=== PATIENT | male | born 1960 | race Caucasian/White ===

== ENCOUNTER 2020-11-26 09:36 | Emergency (ER) | payer MEDICAID, SELFPAY ==
[2020-11-26] VITALS (19 sets, daily range): BP systolic 77–145; BP diastolic 29–63; PULSE 97–160; RESP 16–26; TEMP 34.2–35.1; O2SAT 10–100; BMI 23.3
--- NOTE | ~2020-11-26 | XR_ITS ---
EXAMINATION: XR CHEST CLINICAL INFORMATION: ET tube placement COMPARISON: Previous chest x-ray from earlier the same day TECHNIQUE: Frontal view of the chest was obtained. FINDINGS: There is a new endotracheal tube with tip 0.5 cm above the jc. There is a new nasogastric tube with tip projecting over the stomach. The cardiac and mediastinal contours are normal. There may be small right upper lobe nodules largest measuring 5 mm that appear unchanged. The lungs are otherwise clear. There is no pleural effusion or pneumothorax. Bony structures are unremarkable. XR/XR chest 1V IMPRESSION: Satisfactory position of endotracheal tube and nasogastric tube.
--- NOTE | ~2020-11-26 | CT_ITS ---
EXAMINATION: CT HEAD WITHOUT CONTRAST CLINICAL INFORMATION: Acute mental status change COMPARISON: None TECHNIQUE: Contiguous axial imaging was performed from the skull base to vertex without intravenous administration of contrast. This CT examination was performed using dose optimization techniques as appropriate, variously including the following: *Automated exposure control *Adjustment of mA and/or kV according to patient size (this includes techniques or standardized protocols for targeted exams where dose is matched to indication/reason for exam; i.e. extremities or head) *Use of iterative reconstruction technique DLP: 7-0 mGy-cm FINDINGS: Exam is limited due to motion artifact. There is no evidence of acute intracranial hemorrhage or territorial infarction. No abnormal mass effect or midline shift is seen. Rushing to white matter differentiation is well preserved. No extra-axial fluid collections are identified. The ventricles are normal in size. There is no abnormal attenuation within the brain parenchyma. The osseous structures and soft tissues are normal. The mastoid air cells and visualized portions of the paranasal sinuses are well aerated. CT/CT head/brain wo con IMPRESSION: Limited exam due to motion artifact. No acute findings.
--- NOTE | ~2020-11-26 | CT_ITS ---
EXAMINATION: CT ABDOMEN AND PELVIS WITHOUT CONTRAST CLINICAL INFORMATION: Abdominal pain COMPARISON: None TECHNIQUE: Multidetector volumetric imaging was performed from the superior aspect of the liver through the pubic symphysis. Sagittal and coronal reformatted images were obtained on the technologist's workstation. Exam is limited due to motion artifact. This CT examination was performed using dose optimization techniques as appropriate, variously including the following: *Automated exposure control *Adjustment of mA and/or kV according to patient size (this includes techniques or standardized protocols for targeted exams where dose is matched to indication/reason for exam; i.e. extremities or head) *Use of iterative reconstruction technique DLP: 860 mGy-cm FINDINGS: LUNG BASES: The visualized lung bases are unremarkable. LIVER, GALLBLADDER, AND BILIARY TREE: The liver is cirrhotic appearing. No focal liver lesion is seen. The gallbladder is upper normal in size. There is a gallstone in the gallbladder. There is no biliary duct dilatation. PANCREAS: Unremarkable. SPLEEN: Unremarkable. ADRENAL GLANDS: Unremarkable. KIDNEYS AND URETERS: The kidneys are normal in size, shape, and attenuation. No hydronephrosis, hydroureter, or calculi seen. No perinephric stranding. BLADDER: There is a Dukes catheter in the bladder. GASTROINTESTINAL TRACT: The bowel is fluid-filled suggestive of an ileus. There is question of mild bowel wall thickening of the transverse colon. There is also question of a right-sided wall thickening of the distal sigmoid colon or rectum. There are prominent gastric folds questionable for gastritis. There is question of mild wall thickening versus underdistention of the duodenum. The appendix is not seen. ABDOMINAL WALL: No significant hernia is appreciated. LYMPH NODES: Normal. VASCULAR: There is a right axillary to femoral bypass graft. There is a femoral to femoral bypass graft. There are postsurgical changes seen in both groins. There is evidence of severe atherosclerotic disease. No aneurysm is seen. There are upper abdominal varices. PELVIC VISCERA: Unremarkable. OSSEOUS STRUCTURES: There are degenerative changes of the spine and hip joints. CT/CT abdomen pelvis wo con IMPRESSION: Limited exam due to motion artifact. Cirrhotic-appearing liver. Upper normal-size gallbladder and gallstone. Varices. Fluid-filled loops of bowel suggestive of an ileus. There are prominent gastric folds seen in the stomach. There is question of mild wall thickening of the duodenum and transverse colon. There is also question of asymmetric right-sided wall thickening in the rectum lower sigmoid colon. Correlation with rectal exam recommended.
--- NOTE | ~2020-11-26 | XR_ITS ---
EXAMINATION: XR CHEST CLINICAL INFORMATION: SOB. COMPARISON: None TECHNIQUE: Frontal view of the chest was obtained. FINDINGS: The lungs are well-expanded and clear of acute pneumonic process. There are small clusters of nodule in the right upper lobe. The largest nodule measuring 5 mm. Heart size and pulmonary vascularity is normal. No gross bony abnormality seen. XR/XR chest 1V IMPRESSION: No acute cardiac pulmonary process seen. Small clusters of nodules in the right upper lobe with largest measuring 5 mm.
--- NOTE | 2020-11-26 09:46 | ECG_ITS ---
Test Reason : HYPOTENSION Blood Pressure : / mmHG Vent. Rate : 111 BPM Atrial Rate : 000 BPM P-R Int : 000 ms QRS Dur : 172 ms QT Int : 168 ms P-R-T Axes : 000 123 000 degrees QTc Int : 229 ms Wide QRS tachycardia Abnormal ECG No previous ECGs available Referred By: Lillian Hirsch Electronically Signed By:ANA MARTINEZ MD
[2020-11-26] MEDS: Calcium Gluconate/NaCl,Iso-Osm 1 GM/50 ML PLAST..BAG IV (09:53)
[2020-11-26 10:02] LABS: OBS Int Ctl Valid YES; OBS1 POSITIVE (NEGATIVE)
[2020-11-26 10:10] LABS: ABG pH 7.21 (7.35-7.45); ABG pO2 113 mmHg (83-108)
[2020-11-26 10:18] LABS: ABG HCO3 2 mmol/L (22-26); ABG pCO2 8 mmHg (32-45); ABG pH 7.02 (7.35-7.45); ABG pO2 191 mmHg (83-108)
--- NOTE | 2020-11-26 10:32 | ECG_ITS ---
Test Reason : weakness Blood Pressure : / mmHG Vent. Rate : 211 BPM Atrial Rate : 197 BPM P-R Int : 000 ms QRS Dur : 116 ms QT Int : 228 ms P-R-T Axes : 000 138 -33 degrees QTc Int : 427 ms Suspect limb lead reversal, interpretation assumes no reversal Undetermined rhythm Low voltage QRS Lateral infarct (cited on or before 26-NOV-2020) Abnormal ECG When compared with ECG of 26-NOV-2020 09:47, Current undetermined rhythm precludes rhythm comparison, needs review Right bundle branch block is no longer Present Questionable change in initial forces of Anterolateral leads Referred By: Lillian Hirsch Electronically Signed By:
[2020-11-26 10:40] LABS: MANUAL DIFF FLAG NO
[2020-11-26] MEDS: 0.9 % Sodium Chloride 1,000 ML 999 ML IV (10:40)
[2020-11-26 10:43] LABS: Basophils Absolute Auto 0.1 X10*3/uL (0.0-0.2); Basophils Percent Auto 0.4 % (0-2); Eosinophils Absolute Auto 0.1 X10*3/uL (0.0-0.4); Eosinophils Percent Auto 0.5 % (0-4); Imm Gran Abs Auto 0.76 X10*3/uL (0.00-0.03); Imm Gran Pct Auto 4.6 % (0.0-0.4); Lymphocytes Absolute Auto 1.3 X10*3/uL (1.2-4.9); Mean Corpuscular HGB Conc 30.6 g/dl (31.0-36.0); Mean Corpuscular Hemoglobin 31.3 pg (27.0-33.0); Mean Corpuscular Volume 102.3 fL (80-98); Mean Platelet Volume 11.6 fL (9.4-12.4); Monocytes Absolute Auto 1.4 X10*3/uL (0.1-1.2); Monocytes Percent Auto 8.4 % (2-11); Neutrophils Percent Auto 78.1 % (45-73); Platelet Count 296 X10*3/uL (160-400); Red Blood Count 3.52 X10*6/uL (4.60-5.80); Red Cell Distribution Width 16.7 % (11.0-16.0); White Blood Count 16.7 X10*3/uL (4.8-10.8)
[2020-11-26 11:13] LABS: Troponin-I High Sensitivity 18.1 ng/L (<3.5-35.0)
[2020-11-26 11:19] LABS: Albumin Level 2.1 g/dL (3.5-5.0); Bilirubin Direct 1.2 mg/dL (0.0-0.5); Glucose Random 137 mg/dL (60-115); Lipase 117 U/L (8-78); Magnesium 2.4 mg/dL (1.6-2.6); Total Protein 5.4 g/dL (6.5-8.0)
[2020-11-26 11:20] LABS: Appearance Urine CLOUDY; Color Urine DARK YELLOW; Glucose Urine UA NEG (NEG); Leukocyte Esterase Urine 1+ (NEG); Nitrite Urine POS (NEG); PH 5.5 (5.0-8.0); UACC Culture Trigger YES; Urine Blood 3+ (NEG); Urine Ketones NEG (NEG); Urine Protein 1+ MG/DL (NEG-TRACE)
[2020-11-26] MEDS: dexAMETHasone sod phosphate 10 MG/ML VIAL IVPUSH (11:24)
[2020-11-26 11:32] LABS: Amorphous Sediment Urine 2+ /LPF; Bacteria Urine 1+ /LPF; Squamous Epithelial Cell Urine 2+ /LPF; WBC Urine 50-75 /HPF (0-4)
[2020-11-26] MEDS: cefEPime HCl 2 GM in 0.9 % Sodium Chloride 50 ML IV (11:36)
[2020-11-26 11:39] LABS: ABG Refer to POC result
[2020-11-26 11:39] LABS: Alanine Aminotransferase 905 U/L (0-40); Alkaline Phosphatase 102 U/L (39-117); Aspartate Amino Transferase 1632 U/L (5-37); Blood Urea Nitrogen 98 mg/dL (9-16); Calcium 6.1 mg/dL (8.4-10.2); Carbon Dioxide < 5 mmol/L (22-29); Chloride 104 mmol/L (96-108); Creatinine Clr Calc Pharmacy 17.6; Estimated Glomerular Filt Rate 13; Potassium 7.9 mmol/L (3.3-5.1); Sodium 130 mmol/L (135-145)
[2020-11-26 11:40] LABS: Lactic Acid 12.3 mmol/L (0.5-2.0)
[2020-11-26] MEDS: Insulin Regular, Human 100 UNIT/ML 3 ML VIAL 7 UNIT IVPUSH (11:44)
[2020-11-26] MEDS: Sodium Bicarbonate 8.4% 50 MEQ/50 ML VIAL IVPUSH (11:46)
[2020-11-26 11:51] LABS: Thyroid Stimulating Hormone 5.03 uIU/mL (0.32-4.0)
--- NOTE | 2020-11-26 11:59 | ED.URI ---
HPI - URI/Sore Throat General Chief Complaint: Upper Respiratory Symptoms Stated Complaint: ams, hypotensive Time Seen by Provider: 11/26/20 09:45 History of Present Illness HPI Narrative: Patient is a 60-year-old male with a history of diabetes, hepatitis, peripheral vascular disease, presents today in extremis with shortness of breath. Patient unable to give detailed history. Was placed on CPAP by EMS. Patient unable to give detailed history secondary to condition. Related Data Home Medications Medication Instructions Recorded Confirmed alprazolam 1 tab PO TID PRN 11/26/20 11/26/20 aspirin 1 tab PO DAILY 11/26/20 11/26/20 atorvastatin 1 tab PO DAILY 11/26/20 11/26/20 clobetasol [Temovate] 1 appl TOPICAL BID 11/26/20 11/26/20 coal tar [Neutrogena T-Gel] 1 appl TOPICAL DAILY 11/26/20 11/26/20 ferrous sulfate [FeroSul] 1 tab PO BID 11/26/20 11/26/20 finasteride 1 tab PO DAILY 11/26/20 11/26/20 furosemide 1 tab PO DAILY 11/26/20 11/26/20 gabapentin 1 cap PO TID 11/26/20 11/26/20 ibuprofen 600 mg PO Q6H PRN 11/26/20 11/26/20 linaclotide [Linzess] 145 mcg PO DAILY 11/26/20 11/26/20 lisinopril 10 mg PO DAILY 11/26/20 11/26/20 czvzhhcb-scji-JO-calcium-mins 1 tab PO DAILY 11/26/20 11/26/20 [Thera-M] nystatin [Nystop] 1 appl TOPICAL DAILY 11/26/20 11/26/20 omeprazole 1 cap PO DAILY 11/26/20 11/26/20 oxycodone 1 tab PO Q4H PRN 11/26/20 11/26/20 triamcinolone acetonide [Kenalog] 1 appl TOPICAL BID PRN 11/26/20 11/26/20 zinc sulfate 220 mg PO Q12H 11/26/20 11/26/20 Allergies Allergy/AdvReac Type Severity Reaction Status Date / Time Sulfa (Sulfonamide Allergy Unknown UNKNOWN Unverified 01/22/20 19:53 Antibiotics) [SULFA (SULFONAMIDE ANTIBIOTICS)] tuberculin, purified protein Allergy Unknown UNKNOWN Unverified 01/22/20 19:53 deriva [TUBERCULIN, PURIFIED PROTEIN DERIVA] Review of Systems Review of Systems: Unable to obtain review systems secondary to patient's condition. Yes Unobtainable due to mental condition [facility] Past Medical History Attestation statement: The following information was validated with the patient. Medical History Diabetes High cholesterol HTN (hypertension) Urine retention Social History Social History Advance Directives: Yes Advance Directives Information Provided: Yes Advance Directives on File: No Physical Exam Vital Signs: Vital Signs: Last Vital Signs Temp 95.2 F L 11/26/20 13:46 Pulse 110 H 11/26/20 13:59 Resp 16 11/26/20 13:59 BP 116/54 L 11/26/20 13:59 Pulse Ox 100 11/26/20 13:59 Body Mass Index 23.3 Appearance: Toxic appearing mumbling answer to to name only. Eyes: Pupils equal, round and reactive to light. ENT: Pharynx normal. Neck: Normal inspection. Neck supple. No lymph nodes noted. No crepitus CVS: Tachycardic Respiratory: Increased respiratory rate but lungs are clear bilaterally. Abdomen: Nontender Skin: Bilateral lower extremity mottled. No dopplerable pulses noted in the left dorsalis pedis and posterior tibialis. The right lower extremity is status post icckt-ljq-pzeh amputation. Both lower extremity feels cold. The upper extremity radial pulses well palpable. Slightly warmer. Lower Extremities: See above Neuro: Moaning oriented potentially to self only. Unable to give details. Moving arms and legs to painful stimuli Procedures Intubation Time out performed: Yes sedative: Etomidate Mg Given: 20 paralytic: Rocuronium Mg Given: 100 Laryngoscope: fiber optic video scope ET Tube Size: 7.5 ET Tube Uncuffed: Yes Tube Secured Depth (cm): 24 Tube Secured Location: lips Tube Placement Confirmation: visualized tube passing through cords Patient Tolerated Procedure: well Intubation Complications: none MDM - URI/Sore Throat MDM Narrative Medical decision making narrative: Patient presented in extremis. The initial chest x-ray did not show any focal infiltrate. An ABG was obtained after multiple attempts. It showed a severe metabolic acidosis. Patient's EKG showed a wide complex tachycardia. Question secondary to electrolyte abnormality. Initially a dose of calcium gluconate was given. The QRS tighten nicely. It appeared patient had a narrow complex at that point. A 2nd EKG was done later which showed a narrow complex tachycardia. Patient's electrolytes was sent off. In the meantime patient's ABG showed a severe metabolic acidosis. Patient was cultured. Antibiotic was started. Patient's lactate is over 12. Multiple L of IV fluid was infused. An external jugular IV was placed by . Additional 18 gauge was in the right upper extremity. At this point the chemistry came back. Patient's creatinine is 4.7 with a BUN of 98. Patient's bicarb is less than 5. Consistent with the severe metabolic acidosis. Attempted to contact next of kin. Unfortunately the phone number is wrong. Attempted to contact critical care. Dr. cadena to see patient. Case also consulted by vascular Dr. Hopson and was also discussed with Renal. Critical Care did an echo it showed good ejection fraction. Vascular felt patient had model lower extremity cannot rule out global causes of the ischemic appearing lower extremity. Unable to get CTA secondary to patient's kidney function. We will intubate at this point as patient toxic appearing. Critical care and vascular recommended patient to be transferred to [facility]. Will contact [facility] transfer line. Will make additional attempt to contact family. Documentation showed patient is a full code. For the hyperkalemia we give insulin/glucose, bicarb, bicarb drip. We will intubate would rocuronium and etomidate. Patient intubated. No correct phone number for Family can be found. Two attempts were made already. Attempted to contact jail as well. Patient's case discussed with [facility] metaphysicist. Accepted patient to the intensive care unit. Chest x-ray post intubation showed ET tube to be in the level of the clavicle. It was pushed down additional 2 cm. Locked in a 24. Propofol for sedation. At this point patient's blood pressure is 130/60. Elected to hold off on a central line for now. Patient going to [facility] Intensive Care Unit. Lab Data Result diagrams: 11/26/20 10:30 11/26/20 10:30 Labs: Lab Results 0711/26/20 11/26/20 Range/Units 09:57 10:04 10:12 WBC (4.8-10.8) X10*3/uL RBC (4.60-5.80) X10*6/uL Hgb (14.0-18.0) g/dl Hct (42-52) % MCV (80-98) fL MCH (27.0-33.0) pg MCHC (31.0-36.0) g/dl RDW (11.0-16.0) % Plt Count (160-400) X10*3/uL MPV (9.4-12.4) fL Immature Gran % (Auto) (0.0-0.4) % Neut % (Auto) (45-73) % Lymph % (Auto) (20-40) % Alexander % (Auto) (2-11) % Eos % (Auto) (0-4) % Baso % (Auto) (0-2) % Lymph # (Auto) (1.2-4.9) X10*3/uL Alexander # (Auto) (0.1-1.2) X10*3/uL Eos # (Auto) (0.0-0.4) X10*3/uL Baso # (Auto) (0.0-0.2) X10*3/uL Abs Immat Gran (auto) (0.00-0.03) X10*3/uL Absolute Neuts (auto) (2.0-8.3) X10*3/uL Absolute Nucleated RBC (0.0-0.012) X10*3/uL Nucleated RBC % (auto) (0.0-0.2) /100WBC O2 Saturation 98.0 % ABG pH at Pt Temp 7.21 L 7.02 L* (7.35-7.45) ABG pCO2 at Pt Temp 8 L* (32-45) mmHg ABG pO2 at Pt Temp 113 H 191 H (83-108) mmHg ABG HCO3 2 L (22-26) mmol/L ABG Base Excess (Actual) -26.0 mmol/L Sodium (135-145) mmol/L Potassium (3.3-5.1) mmol/L Chloride (96-108) mmol/L Carbon Dioxide (22-29) mmol/L Anion Gap BUN (9-16) mg/dL Creatinine (0.5-1.4) mg/dL Estim Creat Clear Calc Estimated GFR POC Glucose (60-115) mg/dL Random Glucose (60-115) mg/dL Lactic Acid (0.5-2.0) mmol/L Lactic Acid Fup @ 2Hr (0.5-2.0) mmol/L Calcium (8.4-10.2) mg/dL Magnesium (1.6-2.6) mg/dL Total Bilirubin (0.0-1.0) mg/dL Direct Bilirubin (0.0-0.5) mg/dL AST (5-37) U/L ALT (0-40) U/L Alkaline Phosphatase (39-117) U/L Troponin I High Sens (<3.5-35.0) ng/L Total Protein (6.5-8.0) g/dL Albumin (3.5-5.0) g/dL Lipase (8-78) U/L TSH (0.32-4.0) uIU/mL Urine Color Urine Appearance Urine pH (5.0-8.0) Ur Specific [place] (1.005-1.025) Urine Protein (NEG-TRACE) MG/DL Urine Glucose (UA) (NEG) MG/DL Urine Ketones (NEG) MG/DL Urine Blood (NEG) Urine Nitrite (NEG) Ur Leukocyte Esterase (NEG) Urine RBC (0) /HPF Urine WBC (0-4) /HPF Ur Squamous Epith Cells /LPF Amorphous Sediment /LPF Urine Bacteria /LPF Stool Occult Blood POSITIVE (NEGATIVE) COVID-19 ([facility]ASSI) (Negative) COVID-19 Clin Com 11/26/20 11/26/20 11/26/20 Range/Units 10:30 10:30 10:30 WBC 16.7 H (4.8-10.8) X10*3/uL RBC 3.52 L (4.60-5.80) X10*6/uL Hgb 11.0 L (14.0-18.0) g/dl Hct 36.0 L (42-52) % MCV 102.3 H (80-98) fL MCH 31.3 (27.0-33.0) pg MCHC 30.6 L (31.0-36.0) g/dl RDW 16.7 H (11.0-16.0) % Plt Count 296 (160-400) X10*3/uL MPV 11.6 (9.4-12.4) fL Immature Gran % (Auto) 4.6 H (0.0-0.4) % Neut % (Auto) 78.1 H (45-73) % Lymph % (Auto) 8.0 L (20-40) % Alexander % (Auto) 8.4 (2-11) % Eos % (Auto) 0.5 (0-4) % Baso % (Auto) 0.4 (0-2) % Lymph # (Auto) 1.3 (1.2-4.9) X10*3/uL Alexander # (Auto) 1.4 H (0.1-1.2) X10*3/uL Eos # (Auto) 0.1 (0.0-0.4) X10*3/uL Baso # (Auto) 0.1 (0.0-0.2) X10*3/uL Abs Immat Gran (auto) 0.76 H (0.00-0.03) X10*3/uL Absolute Neuts (auto) 13.0 H (2.0-8.3) X10*3/uL Absolute Nucleated RBC 0.000 (0.0-0.012) X10*3/uL Nucleated RBC % (auto) 0.0 (0.0-0.2) /100WBC O2 Saturation % ABG pH at Pt Temp (7.35-7.45) ABG pCO2 at Pt Temp (32-45) mmHg ABG pO2 at Pt Temp (83-108) mmHg ABG HCO3 (22-26) mmol/L ABG Base Excess (Actual) mmol/L Sodium 130 L (135-145) mmol/L Potassium 7.9 H* (3.3-5.1) mmol/L Chloride 104 (96-108) mmol/L Carbon Dioxide < 5 L* (22-29) mmol/L Anion Gap TNP BUN 98 H* (9-16) mg/dL Creatinine 4.72 H* (0.5-1.4) mg/dL Estim Creat Clear Calc 17.6 Estimated GFR 13 POC Glucose (60-115) mg/dL Random Glucose 137 H (60-115) mg/dL Lactic Acid 12.3 H* (0.5-2.0) mmol/L Lactic Acid Fup @ 2Hr (0.5-2.0) mmol/L Calcium 6.1 L (8.4-10.2) mg/dL Magnesium 2.4 (1.6-2.6) mg/dL Total Bilirubin 2.0 H (0.0-1.0) mg/dL Direct Bilirubin 1.2 H (0.0-0.5) mg/dL AST 1632 H (5-37) U/L ALT 905 H (0-40) U/L Alkaline Phosphatase 102 (39-117) U/L Troponin I High Sens (<3.5-35.0) ng/L Total Protein 5.4 L (6.5-8.0) g/dL Albumin 2.1 L (3.5-5.0) g/dL Lipase 117 H (8-78) U/L TSH 5.03 H (0.32-4.0) uIU/mL Urine Color Urine Appearance Urine pH (5.0-8.0) Ur Specific [place] (1.005-1.025) Urine Protein (NEG-TRACE) MG/DL Urine Glucose (UA) (NEG) MG/DL Urine Ketones (NEG) MG/DL Urine Blood (NEG) Urine Nitrite (NEG) Ur Leukocyte Esterase (NEG) Urine RBC (0) /HPF Urine WBC (0-4) /HPF Ur Squamous Epith Cells /LPF Amorphous Sediment /LPF Urine Bacteria /LPF Stool Occult Blood (NEGATIVE) COVID-19 ([facility]ASSI) (Negative) COVID-19 Clin Com 11/26/20 11/26/20 11/26/20 Range/Units 10:30 11:10 11:57 WBC (4.8-10.8) X10*3/uL RBC (4.60-5.80) X10*6/uL Hgb (14.0-18.0) g/dl Hct (42-52) % MCV (80-98) fL MCH (27.0-33.0) pg MCHC (31.0-36.0) g/dl RDW (11.0-16.0) % Plt Count (160-400) X10*3/uL MPV (9.4-12.4) fL Immature Gran % (Auto) (0.0-0.4) % Neut % (Auto) (45-73) % Lymph % (Auto) (20-40) % Alexander % (Auto) (2-11) % Eos % (Auto) (0-4) % Baso % (Auto) (0-2) % Lymph # (Auto) (1.2-4.9) X10*3/uL Alexander # (Auto) (0.1-1.2) X10*3/uL Eos # (Auto) (0.0-0.4) X10*3/uL Baso # (Auto) (0.0-0.2) X10*3/uL Abs Immat Gran (auto) (0.00-0.03) X10*3/uL Absolute Neuts (auto) (2.0-8.3) X10*3/uL Absolute Nucleated RBC (0.0-0.012) X10*3/uL Nucleated RBC % (auto) (0.0-0.2) /100WBC O2 Saturation % ABG pH at Pt Temp (7.35-7.45) ABG pCO2 at Pt Temp (32-45) mmHg ABG pO2 at Pt Temp (83-108) mmHg ABG HCO3 (22-26) mmol/L ABG Base Excess (Actual) mmol/L Sodium (135-145) mmol/L Potassium (3.3-5.1) mmol/L Chloride (96-108) mmol/L Carbon Dioxide (22-29) mmol/L Anion Gap BUN (9-16) mg/dL Creatinine (0.5-1.4) mg/dL Estim Creat Clear Calc Estimated GFR POC Glucose (60-115) mg/dL Random Glucose (60-115) mg/dL Lactic Acid (0.5-2.0) mmol/L Lactic Acid Fup @ 2Hr (0.5-2.0) mmol/L Calcium (8.4-10.2) mg/dL Magnesium (1.6-2.6) mg/dL Total Bilirubin (0.0-1.0) mg/dL Direct Bilirubin (0.0-0.5) mg/dL AST (5-37) U/L ALT (0-40) U/L Alkaline Phosphatase (39-117) U/L Troponin I High Sens 18.1 (<3.5-35.0) ng/L Total Protein (6.5-8.0) g/dL Albumin (3.5-5.0) g/dL Lipase (8-78) U/L TSH (0.32-4.0) uIU/mL Urine Color DARK YELLOW Urine Appearance CLOUDY Urine pH 5.5 (5.0-8.0) Ur Specific [place] 1.020 (1.005-1.025) Urine Protein 1+ H (NEG-TRACE) MG/DL Urine Glucose (UA) NEG (NEG) MG/DL Urine Ketones NEG (NEG) MG/DL Urine Blood 3+ H (NEG) Urine Nitrite POS H (NEG) Ur Leukocyte Esterase 1+ H (NEG) Urine RBC 15-29 H (0) /HPF Urine WBC 50-75 H (0-4) /HPF Ur Squamous Epith Cells 2+ /LPF Amorphous Sediment 2+ /LPF Urine Bacteria 1+ /LPF Stool Occult Blood (NEGATIVE) COVID-19 (KASSI) Negative (Negative) COVID-19 Clin Com See Note 11/26/20 11/26/20 Range/Units 12:48 13:32 WBC (4.8-10.8) X10*3/uL RBC (4.60-5.80) X10*6/uL Hgb (14.0-18.0) g/dl Hct (42-52) % MCV (80-98) fL MCH (27.0-33.0) pg MCHC (31.0-36.0) g/dl RDW (11.0-16.0) % Plt Count (160-400) X10*3/uL MPV (9.4-12.4) fL Immature Gran % (Auto) (0.0-0.4) % Neut % (Auto) (45-73) % Lymph % (Auto) (20-40) % Alexander % (Auto) (2-11) % Eos % (Auto) (0-4) % Baso % (Auto) (0-2) % Lymph # (Auto) (1.2-4.9) X10*3/uL Alexander # (Auto) (0.1-1.2) X10*3/uL Eos # (Auto) (0.0-0.4) X10*3/uL Baso # (Auto) (0.0-0.2) X10*3/uL Abs Immat Gran (auto) (0.00-0.03) X10*3/uL Absolute Neuts (auto) (2.0-8.3) X10*3/uL Absolute Nucleated RBC (0.0-0.012) X10*3/uL Nucleated RBC % (auto) (0.0-0.2) /100WBC O2 Saturation % ABG pH at Pt Temp (7.35-7.45) ABG pCO2 at Pt Temp (32-45) mmHg ABG pO2 at Pt Temp (83-108) mmHg ABG HCO3 (22-26) mmol/L ABG Base Excess (Actual) mmol/L Sodium (135-145) mmol/L Potassium (3.3-5.1) mmol/L Chloride (96-108) mmol/L Carbon Dioxide (22-29) mmol/L Anion Gap BUN (9-16) mg/dL Creatinine (0.5-1.4) mg/dL Estim Creat Clear Calc Estimated GFR POC Glucose 211 H (60-115) mg/dL Random Glucose (60-115) mg/dL Lactic Acid (0.5-2.0) mmol/L Lactic Acid Fup @ 2Hr 11.8 H* (0.5-2.0) mmol/L Calcium (8.4-10.2) mg/dL Magnesium (1.6-2.6) mg/dL Total Bilirubin (0.0-1.0) mg/dL Direct Bilirubin (0.0-0.5) mg/dL AST (5-37) U/L ALT (0-40) U/L Alkaline Phosphatase (39-117) U/L Troponin I High Sens (<3.5-35.0) ng/L Total Protein (6.5-8.0) g/dL Albumin (3.5-5.0) g/dL Lipase (8-78) U/L TSH (0.32-4.0) uIU/mL Urine Color Urine Appearance Urine pH (5.0-8.0) Ur Specific [place] (1.005-1.025) Urine Protein (NEG-TRACE) MG/DL Urine Glucose (UA) (NEG) MG/DL Urine Ketones (NEG) MG/DL Urine Blood (NEG) Urine Nitrite (NEG) Ur Leukocyte Esterase (NEG) Urine RBC (0) /HPF Urine WBC (0-4) /HPF Ur Squamous Epith Cells /LPF Amorphous Sediment /LPF Urine Bacteria /LPF Stool Occult Blood (NEGATIVE) COVID-19 ([facility]ASSI) (Negative) COVID-19 Clin Com Critical Care Time Critical Care Time Attestation: I have personally provided 140 minutes of critical care time exclusive of time spent on separately billable procedures. Time includes review of lab data, radiology results, discussion with consultants, and monitoring for potential decompensation. Interventions were performed as documented above Discharge Plan Discharge Clinical Impression: Acute hyperkalemia, High serum lactate, Peripheral vascular disease, Respiratory failure, Metabolic acidosis Patient Disposition: [facility] Transfer Details: Transfer to [facility] Prescriptions: No Action atorvastatin 80 mg tablet 1 tab PO DAILY RF: 0 alprazolam 1 mg tablet 1 tab PO TID PRN (Reason: Anxiety) RF: 0 clobetasol [Temovate] 0.05 % Cream 1 appl TOPICAL BID RF: 0 aspirin 81 mg tablet,delayed release (DR/EC) 1 tab PO DAILY RF: 0 triamcinolone acetonide [Kenalog] 0.1 % Cream 1 appl TOPICAL BID PRN (Reason: Itching) RF: 0 oxycodone 15 mg tablet 1 tab PO Q4H PRN (Reason: pain) RF: 0 ferrous sulfate [FeroSul] 325 mg (65 mg iron) tablet 1 tab PO BID RF: 0 lisinopril 10 mg Tablet 10 mg PO DAILY RF: 0 gabapentin 300 mg capsule 1 cap PO TID RF: 0 omeprazole 20 mg capsule,delayed release(DR/EC) 1 cap PO DAILY RF: 0 furosemide 20 mg tablet 1 tab PO DAILY RF: 0 ibuprofen 600 mg Tablet 600 mg PO Q6H PRN (Reason: Pain (Scale Score 1-3)) RF: 0 Neutrogena T-Gel 0.5 % Shampoo 1 appl TOPICAL DAILY RF: 0 finasteride 5 mg tablet 1 tab PO DAILY RF: 0 Thera-M 9 mg iron-400 mcg tablet 1 tab PO DAILY RF: 0 Linzess 145 mcg Capsule 145 mcg PO DAILY RF: 0 nystatin [Nystop] 100,000 unit/gram Powder 1 appl TOPICAL DAILY RF: 0 zinc sulfate 220 mg Capsule 220 mg PO Q12H RF: 0
--- NOTE | 2020-11-26 12:00 | PC.NURSE ---
PT HAS MULTIPLE OPEN WOUNDS TO THE COCCYX AND BUTTOCKS - SOME WITH DRESSINGS ON THEM FROM FACILITY. WOUNDS HAVE BLOODY DRAINAGE FROM THEM.
[2020-11-26 12:17] LABS: COVID-19 Test Negative (Negative); IDNOW Serial# 9DD0AD1C
[2020-11-26] MEDS: Sodium Bicarbonate 8.4% 150 MEQ in Dextrose 5 % 850 ML 100 MEQ IV (12:26)
--- NOTE | 2020-11-26 12:27 | W.PM.CCCN ---
History of Present Illness Data of Consult Service Date: 11/26/20 Requesting physician: Lillian Hirsch Primary Care Provider: Unknown Physician HPI I was called by Dr. Hirsch to see Mr. Kim in the ED because of acute renal failure with hyperkalemia. The patient has a history of diabetes, hepatitis, severe peripheral vascular disease, with right BKA. Patient was brought in by ambulance because of shortness of breath. He presented to the ED in extremis. Vital signs in the ED showed a heart rate of 107, blood pressure 77/38, respiratory rate of 18 with sat 100% on CPAP. Temperature was 93.6 degrees. The patient appeared toxic and was mumbling and answer to name only. Abdomen was nontender. His lower extremities were mottled from the knee down. The left leg was cold with no pulses. Reportedly he came in with a wide complex rhythm that narrowed after being given calcium. Labs in the ED were notable for a white count of 16.7, hemoglobin 11, platelet count of 296,000. Sodium is 130, potassium 7.9, bicarb less than 5, BUN/creatinine 98/4.7, glucose 137, T bili 2.0, AST 1600, ALT 900, albumin 2.1, lipase 117, and lactic acid 12.3. Arterial blood gas (question FiO2) showed 7.02/8/191/-26. I saw the patient in the ED. On my exam, vital signs are pretty much as above. Blood pressure still in the 70s. The respiratory rate is about 20 -22. On 2 L nasal cannula, the sat is 100%. He still feels cold. He has the Misti Hugger on. Reported temperature is still 93.7 degrees. He is awake and disoriented. Denies abdominal pain or tenderness when I mash on his belly. Both eyes are warm. He is mottled from the knees down and the left leg is cold and white. He has had 3 L of crystalloid so far. ECHOCARDIOGRAM done by me at the bedside: Image quality: Good. Findings: 1. LV wall thickness probably normal. 2. LV cavity size normal, possibly low normal with hyperdynamic contractility. EF at least 60%. 3. RV cavity size normal with good contractility. 4. Atria at not evaluated. 5. Aortic valve: Not evaluated. 6. Mitral valve: Normal morphology. No Doppler done. 7. Tricuspid valve: Normal morphology: No Doppler done. 8. IVC is dilated measuring 2.3 cm, and non collapsing with inspiration. IMPRESSION: 1. Gross shock. 2. Acute renal failure with symptomatic hyperkalemia. 3. Volume resuscitation has been completed. 4. The patient most likely has a surgical catastrophe. From the exam, ischemic or ruptured bowel seems less likely. I am guessing this is probably vascular, although it is not likely aortic occlusion. Have discussed with both Dr. Hirsch and Dr. Still. Very high mortality risk. Recommend [facility]. But needs the abdominal CT first, along with immediate treatment for his hyperkalemia. Recommend bicarb and insulin (in addition to the calcium that he has already had.) Critical care time: 60 min. [facility] Past Medical History Medical History Diabetes High cholesterol HTN (hypertension) Urine retention Social History Social History Advance Directives: Yes Advance Directives Information Provided: Yes Advance Directives on File: No Meds Allergies Allergy/AdvReac Type Severity Reaction Status Date / Time Sulfa (Sulfonamide Allergy Unknown UNKNOWN Unverified 01/22/20 19:53 Antibiotics) [SULFA (SULFONAMIDE ANTIBIOTICS)] tuberculin, purified protein Allergy Unknown UNKNOWN Unverified 01/22/20 19:53 deriva [TUBERCULIN, PURIFIED PROTEIN DERIVA] Active Medications: Current Medications Generic Name Dose Route Start Last Admin Trade Name Freq PRN Reason Stop Dose Admin Sodium Bicarbonate 150 meq/ 1,000 mls @ 100 mls/hr 11/26/20 11:45 11/26/20 12:26 Dextrose IV 100 mls/hr .Q10H OBED Administration Pharmacy Consult 1 each 11/26/20 11:59 Consult Rx Perform Med Rec MISCELLANE ONCE PRN Consult order Home Medications Medication Instructions Recorded Confirmed Last Taken Type alprazolam 1 tab PO TID PRN 11/26/20 11/26/20 Unknown History aspirin 1 tab PO DAILY 11/26/20 11/26/20 Unknown History atorvastatin 1 tab PO DAILY 11/26/20 11/26/20 Unknown History clobetasol [Temovate] 1 appl TOPICAL BID 11/26/20 11/26/20 Unknown History coal tar [Neutrogena T-Gel] 1 appl TOPICAL DAILY 11/26/20 11/26/20 Unknown History ferrous sulfate [FeroSul] 1 tab PO BID 11/26/20 11/26/20 Unknown History finasteride 1 tab PO DAILY 11/26/20 11/26/20 Unknown History furosemide 1 tab PO DAILY 11/26/20 11/26/20 Unknown History gabapentin 1 cap PO TID 11/26/20 11/26/20 Unknown History ibuprofen 600 mg PO Q6H PRN 11/26/20 11/26/20 Unknown History linaclotide [Linzess] 145 mcg PO DAILY 11/26/20 11/26/20 Unknown History lisinopril 10 mg PO DAILY 11/26/20 11/26/20 Unknown History oqxhvjbx-szad-EL-calcium-mins 1 tab PO DAILY 11/26/20 11/26/20 Unknown History [Thera-M] nystatin [Nystop] 1 appl TOPICAL DAILY 11/26/20 11/26/20 Unknown History omeprazole 1 cap PO DAILY 11/26/20 11/26/20 Unknown History oxycodone 1 tab PO Q4H PRN 11/26/20 11/26/20 Unknown History triamcinolone acetonide [Kenalog] 1 appl TOPICAL BID PRN 11/26/20 11/26/20 Unknown History zinc sulfate 220 mg PO Q12H 11/26/20 11/26/20 Unknown History Physical Exam Vital Signs: Vital Signs: Last Vital Signs Temp 93.7 F L 11/26/20 12:03 Pulse 109 H 11/26/20 12:03 Resp 18 11/26/20 11:52 BP 80/32 L 11/26/20 12:03 Pulse Ox 100 11/26/20 11:52 Body Mass Index 23.3 Results Labs CBC & Chem 7: 11/26/20 10:30 11/26/20 10:30 Labs: Short CBC 11/26/20 Range/Units 10:30 WBC 16.7 H (4.8-10.8) X10*3/uL Hgb 11.0 L (14.0-18.0) g/dl Hct 36.0 L (42-52) % Plt Count 296 (160-400) X10*3/uL BMP 11/26/20 10:30 Sodium 130 L Potassium 7.9 H* Chloride 104 Carbon Dioxide < 5 L* BUN 98 H* Creatinine 4.72 H* Calcium 6.1 L Liver Function 11/26/20 Range/Units 10:30 Total Bilirubin 2.0 H (0.0-1.0) mg/dL Direct Bilirubin 1.2 H (0.0-0.5) mg/dL AST 1632 H (5-37) U/L ALT 905 H (0-40) U/L Alkaline Phosphatase 102 (39-117) U/L Albumin 2.1 L (3.5-5.0) g/dL Urine 11/26/20 Range/Units 11:10 Urine Color DARK YELLOW Urine Appearance CLOUDY Urine pH 5.5 (5.0-8.0) Ur Specific [place] 1.020 (1.005-1.025) Urine Protein 1+ H (NEG-TRACE) MG/DL Urine Glucose (UA) NEG (NEG) MG/DL
[2020-11-26 12:38] LABS: Reflex Lactate? Lactic Acid Added
[2020-11-26] MEDS: Etomidate 20 MG/10 ML VIAL IVPUSH (12:45)
[2020-11-26] MEDS: Rocuronium Bromide 50 MG/5 ML VIAL 100 MG IV (12:45)
[2020-11-26 12:53] LABS: Glucose, Whole Blood 211 mg/dL (60-115)
[2020-11-26] MEDS: HYDROmorphone HCl 0.5 MG/0.5 ML SYRINGE IVPUSH (13:24)
[2020-11-26] MEDS: propofoL 1,000 MG/100 ML VIAL 8.84 MG IVCONT (13:26)
[2020-11-26 15:06] LABS: Glucose, Whole Blood 132 mg/dL (60-115)
[2020-11-26 15:37] LABS: Reflex Lactate? 2 Y
[2020-11-27 08:04] LABS: ~Lactic Acid-LAB USE ONLY 11.8 mmol/L (0.5-2.0)
[2020-11-29 07:09] LABS: ABG pH TC 7.21 (7.35-7.45)
== END 2020-11-26 14:20 | disposition short-term general hospital (02) ==
PROVIDERS: Emergency Provider Emergency Medicine Emergency Medical Services
DX: E87.5 Hyperkalemia (principal); E87.2 Acidosis; N17.9 Acute kidney failure, unspecified; R74.02 Elevation of levels of lactic acid dehydrogenase [LDH]; J96.90 Respiratory failure, unspecified, unspecified whether with hypoxia or hypercapnia; I73.9 Peripheral vascular disease, unspecified; R00.0 Tachycardia, unspecified; R06.02 Shortness of breath; S31.809A Unspecified open wound of unspecified buttock, initial encounter; E11.9 Type 2 diabetes mellitus without complications; I10 Essential (primary) hypertension; E78.00 Pure hypercholesterolemia, unspecified; X58.XXXA Exposure to other specified factors, initial encounter; Y93.9 Activity, unspecified; Y92.9 Unspecified place or not applicable; Y99.9 Unspecified external cause status; Z20.822 Contact with and (suspected) exposure to COVID-19; Z89.611 Acquired absence of right leg above knee; Z79.82 Long term (current) use of aspirin; Z79.02 Long term (current) use of antithrombotics/antiplatelets; Z79.899 Other long term (current) drug therapy
CPT/HCPCS: 31500; 36410; 36415; 70450; 71045; 74176; 80048; 80076; 81001; 81003; 82272; 82803; 82947; 83605; 83690; 83735; 84443; 84484; 85025; 87040; 87086; 87088; 87186; 87635; 93005; 94002; 96361; 96365; 96366; 96367; 96375; 96376; 99285; 99291; 99292; J0610; J0692; J1100; J1170